=== PATIENT | male | born 1990 | race Caucasian/White ===

== ENCOUNTER 2019-04-16 17:12 | Inpatient (IN) | payer MEDICAID ==
[~2019-04-16] VITALS: Ht 175.3 cm; Wt 81.6 kg
--- NOTE | 2019-04-16 17:12 | NUR ---
NO OBVIOUS SIGNS OF TRUAMA OR DEFORMITY. NO BLEEDING.
--- NOTE | 2019-04-16 17:12 | NUR ---
Patient transferred to bed 10 via wheelchair by tech. RN evaluating patient at bedside.
[2019-04-16 17:16] VITALS: BP 137/69
[2019-04-16] MEDS ORDERED: NACL 0.9% 1,000 ML IV ONE ×2 (17:20→20:40)
--- NOTE | 2019-04-16 17:20 | NUR ---
# 14 FR Urinary catheter inserted utilizing sterile technique. Immediate return of 50 ml YELLOW urine noted. Urine sample collected and sent to lab. PT TOLERATED WELL
--- NOTE | 2019-04-16 17:32 | NUR ---
XRAY AT BEDSIDE
--- NOTE | 2019-04-16 17:38 | NUR ---
Patient taken to CT scan via gurney by stanley, accompanied by RN.
[2019-04-16 17:52] LABS: BASOPHILS # (AUTO) 0.1 K/uL (0.00-0.22); BASOPHILS % (AUTO) 1.4 % (0.0-2.0); EOSINOPHILS # (AUTO) 0.1 K/uL (0-0.4); HEMATOCRIT 46.3 % (36-52); HEMOGLOBIN 14.9 g/dL (12.0-18.0); LYMPHOCYTES # (AUTO) 3.2 K/uL (2.0-11.5); LYMPHOCYTES % (AUTO) 30.5 % (20.5-51.1); MEAN CORPUSCULAR HEMOGLOBIN 29 pg (27-31); MEAN CORPUSCULAR HGB CONC 32 g/dL (33-37); MEAN CORPUSCULAR VOLUME 90.1 fL (80-94); MONOCYTES # (AUTO) 0.6 K/uL (0.8-1.0); MONOCYTES % (AUTO) 6.1 % (1.7-9.3); NEUTROPHILS # (AUTO) 6.5 K/uL (1.8-7.7); PLATELET COUNT (AUTO) 365 K/uL (140-450); RED BLOOD CELL COUNT(AUTO) 5.14 MIL/uL (4.20-6.10); RED CELL DISTRIBUTION WIDTH 14.1 % (11.6-13.7); WHITE BLOOD COUNT (AUTO) 10.6 K/uL (4.8-10.8)
[2019-04-16 17:56] LABS: APPEARANCE,URINE CLOUDY (CLEAR); BILIRUBIN,URINE NEGATIVE (NEGATIVE); BLOOD, URINE 3+ (NEGATIVE); COLOR,URINE ORANGE (YELLOW); LEUKOCYTE ESTERASE ,URINE NEGATIVE (NEGATIVE); NITRITE, URINE NEGATIVE (NEGATIVE); UGLUCOSE NEGATIVE (NEGATIVE)
--- NOTE | 2019-04-16 17:56 | NUR ---
PT RETURNED FROM CT. PT APHASIC. VITALS TAKEN
[2019-04-16 17:59] LABS: BARBITURATE, URINE NEG. ng/ml (NEG <=200); BENZODIAZEPINE, URINE NEG. ng/mL (NEG <=200); CANNABINOID, URINE NEG. ng/mL (NEG <=50); COCAINE, URINE NEG. ng/mL (NEG <=300); OPIATE, URINE NEG. ng/mL (NEG <=2000); PHENCYCLIDINE SCREEN,URINE NEG. ng/mL (NEG <=25)
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
[2019-04-16 18:05] LABS: ANION GAP 34.2 (8-16); CARBON DIOXIDE 10.5 mmol/L (21-32); CHLORIDE 100 mmol/L (98-107); CREATININE 1.5 mg/dL (0.7-1.3); GFR ARICAN-AMERICAN 72 mL/min (>90); GLUCOSE 152 mg/dL (74-106); POTASSIUM 3.7 mmol/L (3.5-5.1); SODIUM SERUM 141 mmol/L (136-145); UREA NITROGEN, BLOOD 13 mg/dL (7-18)
[2019-04-16 18:11] LABS: ALBUMIN 4.7 g/dL (3.4-5.0); ASPARTATE AMINOTRANSFERASE 17 U/L (15-37); TOTAL BILIRUBIN 1.4 mg/dL (0.0-1.0)
[2019-04-16 18:13] LABS: ACETAMINOPHEN < 0.5 ug/ml (10-30); SALICYLATE < 2.8 mg/dL (2.8-20.0)
--- NOTE | 2019-04-16 18:20 | NUR ---
PT STATES HIS NAME, RESPONSIVE TO VOICE, PUPILS 3 MM. MOVES AND LIFTS EXTREMETIES PT IS MORE COOPERATIVE WITH BROTHER BEDSIDE
--- NOTE | 2019-04-16 18:24 | NUR ---
[facility] NUMBER [phone]
[2019-04-16 18:36] LABS: RBC,URINE TOO NUMEROUS TO COUN /HPF (0-5); WBC,URINE NONE SEEN /HPF (0-5)
--- NOTE | 2019-04-16 18:53 | NUR ---
VITALS TAKEN, PT REFUSING TO ANSWER QUESTIONS OR FOLLOW COMMANDS. PT CALM BUT NOT COOPERATIVE
--- NOTE | 2019-04-16 19:17 | NUR ---
REPORT GIVEN TO ALIVIA REVELES
--- NOTE | 2019-04-16 19:18 | NUR ---
BEDSIDE REPORT RECEIVED FROM ANUSHKA MCCALL. TRANSFER OF CARE AT THIS TIME. PT STATING "I HAVE TO GO TO THE BATHROOM". URINAL PROVIDED.
--- NOTE | 2019-04-16 20:28 | NUR ---
ASKED PT HOW HE IS FEELING. PT RESPONDS "NOT NORMAL". VSS. WILL CONTINUE TO MONITOR.
[2019-04-16] MEDS ORDERED: ONDANSETRON 4 MG/2 ML VIAL IM/IVP PRN (22:00)
[2019-04-16] MEDS ORDERED: DOCUSATE SODIUM 100 MG GELCAP PO PRN (22:00)
[2019-04-16] MEDS ORDERED: HYDROcodone/APAP 5/325 MG 1 TAB TAB PO PRN (22:00)
[2019-04-16] MEDS ORDERED: ACETAMINOPHEN 325 MG TAB PO PRN (22:00)
--- NOTE | 2019-04-16 22:30 | NUR ---
Patient will be admitted to care of Dr. Johnson. Admited to [facility]. Will go to room 107A. Belongings list completed. Report to ANUSHKA Garcia.
[2019-04-16 22:57] LABS: AMYLASE 36 U/L (25-115); CHOL/HDL RATIO 4.5 (1-4.5); HDL CHOLESTEROL 41 mg/dL (40-60); LDL (CALC) 130 mg/dL (60-100); LIPASE 95 U/L (73-393); MAGNESIUM 2.3 mg/dL (1.8-2.4); PHOSPHORUS 2.9 mg/dL (2.5-4.9); THYROID STIMULATING HORMONE 0.78 uIU/mL (0.34-3.74); TRIGLYCERIDES 70 mg/dL (30-150)
[2019-04-16 23:03] LABS: PROTHROMBIN TIME 10.5 secs (10.8-13.4)
[2019-04-16 23:15] VITALS: BP 130/90
--- NOTE | 2019-04-16 23:15 | NUR ---
RECIEVED PT. AAOX1 , FROM ER / [facility] , WITH C/O ALOC - METH (+) , BROUGHT BY HIS BROTHER TO ER , WALKABLE TO TO BED WITH ASSITANCE - UNSTEADY GAIT - CONFUSED , IV SITE INTACT AND PATENT , ADMISSION ASSESSMENT DONE , MRSA COLLECTED AND SENT TO LAB . PLAN OF CARE DISCUSSED BUT POOR UNDERSTANDING DUE TO MENTAL STATUS . PUT ON FALL / SAFETY PRECAUTION PROTOCOL- BED ALARM ON , CALL LIGHT WITHIN REACH , WILL CONT. TO MONITOR..
[2019-04-16] MEDS ORDERED: ALBUTEROL SULFATE/IPRATROPIU 3 ML SOL IH PRN (23:55)
[2019-04-17] MEDS ORDERED: cefTRIAXone 1,000 MG VIAL ONE (00:03)
[2019-04-17] MEDS: NACL 0.9% 1,000 ML IV SCH ×4 (00:11→15:15)
--- NOTE | 2019-04-17 00:11 | NUR ---
RELATIVE ARRIVED SOME QUESTION - ANSWERED BY RELATIVES ABOUT ADMISSION ASSESSMENT.
--- NOTE | 2019-04-17 02:00 | NUR ---
VOIDED FREELY - NO DISTRESS NOTED AT THIS TIME - PT OCASSIONALLY LOOKING AT THE CEILING - STARRING ON THE BLANK
[2019-04-17 04:00] VITALS: BP 111/72
[2019-04-17] MEDS ORDERED: PIPERACILLIN/TAZOBACTAM 3.375 GM VIAL IV ONE (06:04)
[2019-04-17] MEDS: PIPERACILLIN/TAZOBACTAM 3.375 GM in DEXTROSE 5% 50 ML IV SCH ×2 (06:23→15:14)
[2019-04-17 06:44] LABS: BASOPHILS % (AUTO) 0.4 % (0.0-2.0); EOSINOPHILS # (AUTO) 0.1 K/uL (0-0.4); EOSINOPHILS % (AUTO) 1.1 % (0.0-4.0); HEMATOCRIT 39.6 % (36-52); HEMOGLOBIN 13.1 g/dL (12.0-18.0); LYMPHOCYTES # (AUTO) 1.5 K/uL (2.0-11.5); LYMPHOCYTES % (AUTO) 22.9 % (20.5-51.1); MEAN CORPUSCULAR HEMOGLOBIN 29 pg (27-31); MEAN CORPUSCULAR HGB CONC 33 g/dL (33-37); MEAN CORPUSCULAR VOLUME 86.7 fL (80-94); MONOCYTES # (AUTO) 0.4 K/uL (0.8-1.0); MONOCYTES % (AUTO) 6.7 % (1.7-9.3); NEUTROPHILS # (AUTO) 4.5 K/uL (1.8-7.7); NEUTROPHILS % (AUTO) 68.9 % (42.2-75.2); PLATELET COUNT (AUTO) 299 K/uL (140-450); RED BLOOD CELL COUNT(AUTO) 4.56 MIL/uL (4.20-6.10); RED CELL DISTRIBUTION WIDTH 13.9 % (11.6-13.7); WHITE BLOOD COUNT (AUTO) 6.5 K/uL (4.8-10.8)
--- NOTE | 2019-04-17 07:15 | NUR ---
ENDORSED TO AM SHIFT - STILL CONFUSED BUT V/S WNL.
--- NOTE | 2019-04-17 07:15 | NUR ---
Received bedside report from pm nurse Radha. Pt asleep in bed, respirations even & nonlabored, FLACC 0. Right AC IV intact with ongoing NS @ 160ml/hr. Bed alarm on. Call light within reach.
[2019-04-17 07:19] LABS: CHOL/HDL RATIO 4.9 (1-4.5); MAGNESIUM 2.1 mg/dL (1.8-2.4); PHOSPHORUS 3.6 mg/dL (2.5-4.9)
[2019-04-17 07:29] LABS: ANION GAP 13.8 (8-16); CREATININE 0.7 mg/dL (0.7-1.3); POTASSIUM 3.8 mmol/L (3.5-5.1)
[2019-04-17 08:00] VITALS: BP 129/77
[2019-04-17] MEDS: LACTOBACILLUS RHAMNOSUS GG 1 EACH CAP PO SCH (09:00)
--- NOTE | 2019-04-17 09:00 | NUR ---
Po med lactobacillus held d/t ALOC. Pt opens eyes to auditory stimuli but not following commands. No signs of distress. PERRLA. Right AC IV intact with ongoing NS@ 100ml/hr. Bed alarm on. Call light within reach.
--- NOTE | 2019-04-17 09:50 | NUR ---
Attempted to obtain medical hx & consent for IV contrast dye from pt, but pt only opens eyes widely when name is called, stares at ceiling or wall, nonverbal, does not follow commands. Spoke to brother Mateo on the phone & gave medical hx & verbal consent for IV contrast for CT chest.
--- NOTE | 2019-04-17 10:50 | NUR ---
Pt aaox4, verbally responsive, requesting for food & drink. Pt answers appropriately to questions, able to follow simple commands. Dr. Pike notified & states will order diet. Right AC IV intact with ongoing NS @ 100ml/hr. Bed alarm on. Call light within reach.
--- NOTE | 2019-04-17 12:15 | NUR ---
Lunch tray served. Pt wide awake, able to follow commands. Assisted pt to high fowlers, setup tray in front of pt. Call light placed within reach.
--- NOTE | 2019-04-17 13:00 | NUR ---
Noticed pt slumped over his table. Pt woke up when name is called. States he is sleepy at the moment & will eat lunch later. Pt assisted to semifowlers in bed, overbed table moved to the side. Room kept dim & quiet for comfort. Right AC IV intact with ongoing NS @ 100ml/hr. Call light within reach.
--- NOTE | 2019-04-17 15:55 | NUR ---
RECEIVED REPORT FROM NICHOLAS. PT SLEEPING, AROUSABLE TO TOUCH. IV IN PLACE R AC INFUSING PER ORDER. SKIN INTACT. RESPIRATIONS EVEN AND UNLABORED ON ROOM AIR. SAFETY MEASURES IN PLACE, BED IN LOW POSITION. CALL LIGHT WITHIN REACH. WILL CONTINUE TO MONITOR
[2019-04-17 16:00] VITALS: BP 112/75
--- NOTE | 2019-04-17 18:06 | NUR ---
PT IN BED SLEEPING. NO DISTRESS NOTED. FLACC 0. SAFETY MEASURES IN PLACE. BED IN LOW POSITION. CALL LIGHT WITHIN REACH. WILL CONTINUE TO MONITOR.
--- NOTE | 2019-04-17 19:10 | NUR ---
GAVE REPORT TO NIGHT NURSE FOR CONTINUITY OF CARE. PT IN STABLE CONDITION
--- NOTE | 2019-04-17 19:20 | NUR ---
RECEIVED FROM AM RN IN BED SLEEPING. WOKE UP EASILY WHEN TOUCHED BY ME. ABLE TO NOD HEAD WHEN I ASKED HIM IF HE WAS OK AND THAT I AM TAKING OVER CARE FOR THE NIGHT . RE-ORIENTED TO CALL LIGHT USE. NO COMPLAINTS DONE. IVF SITE INTACT AND NO INFILTRATION NOTED. DX. OF CHANGE OF LOC.
[2019-04-17 23:06] VITALS: BP 114/69
--- NOTE | 2019-04-17 23:07 | NUR ---
PT. AWAKE AND EATING DINNER. VERBALIZES WELL IN MOZAMBICAN AND INDONESIAN. A/O X 4. ROM X 4. DENIES ANY PAIN AT THIS TIME. AWARE WHERE HE IS RIGHT NOW . RE-ORIENTED TO SURROUNDINGS AND ENGRAVING PRESS OPERATOR. ENCOURAGED TO USE CALL LIGHT FOR HELP IF IN PAIN AND IF HE NEEDS HELP. URINATED IN URINAL AT THIS TIME. AFEBRILE AND VITAL SIGNS WITH IN NORMAL LIMITS.
--- NOTE | 2019-04-18 00:35 | NUR ---
SLEEPING. WOKE UP WHEN TOUCHED AND CALLED BY NAME. ASKED IF HE WANTS FLU VACCINE AND PNA VACCINE. EXPLAINED PROS AND CONS WITH HIM. "OK" WILL INFORM .
[2019-04-18] MEDS: NACL 0.9% 1,000 ML IV SCH ×2 (02:44→17:24)
--- NOTE | 2019-04-18 03:04 | NUR ---
SLEEPING. NO RESTLESSNESS. NO SOB. CALL LIGHT WITH IN REACH.
--- NOTE | 2019-04-18 06:41 | NUR ---
PT. PERSONAL HYGIENE RENDERED BY PROJECT FINANCIAL ANALYST. WOKE UP EASILY WHEN TOUCHED AND CALLED BY NAME. ABLE TO ANSWER SIMPLE QUESTION. WILL ENDORSE TO AM RN FOR CONTINUITY OF CARE.
--- NOTE | 2019-04-18 07:15 | NUR ---
PT RECEIVED FROM NIGHT NURSE. PT SLEEPING AROUSABLE TO NAME. AAO X2. RESPIRATIONS EVEN AND UNLABORED ON ROOM AIR. SKIN INTACT. IV PATENT AND INTACT R AC 20G INFUSING PER ORDER. PT EXPRESSES FEELING SLEEPY. BED IN LOW POSITION. SAFETY MEASURES IN PLACE. CALL LIGHT WITHIN REACH. WILL CONTINUE TO MONITOR.
[2019-04-18 07:33] LABS: ANION GAP 9.3 (8-16); CARBON DIOXIDE 25.8 mmol/L (21-32); CREATININE 0.7 mg/dL (0.7-1.3); POTASSIUM 4.1 mmol/L (3.5-5.1)
[2019-04-18 07:38] LABS: BASOPHILS % (AUTO) 0.4 % (0.0-2.0); EOSINOPHILS # (AUTO) 0.1 K/uL (0-0.4); EOSINOPHILS % (AUTO) 1.9 % (0.0-4.0); HEMATOCRIT 38.4 % (36-52); HEMOGLOBIN 12.8 g/dL (12.0-18.0); LYMPHOCYTES # (AUTO) 1.5 K/uL (2.0-11.5); LYMPHOCYTES % (AUTO) 28.7 % (20.5-51.1); MEAN CORPUSCULAR HEMOGLOBIN 29 pg (27-31); MEAN CORPUSCULAR HGB CONC 33 g/dL (33-37); MEAN CORPUSCULAR VOLUME 86.9 fL (80-94); MONOCYTES # (AUTO) 0.4 K/uL (0.8-1.0); MONOCYTES % (AUTO) 7.5 % (1.7-9.3); NEUTROPHILS # (AUTO) 3.1 K/uL (1.8-7.7); NEUTROPHILS % (AUTO) 61.5 % (42.2-75.2); PLATELET COUNT (AUTO) 297 K/uL (140-450); RED BLOOD CELL COUNT(AUTO) 4.42 MIL/uL (4.20-6.10); RED CELL DISTRIBUTION WIDTH 13.9 % (11.6-13.7); WHITE BLOOD COUNT (AUTO) 5.1 K/uL (4.8-10.8)
[2019-04-18 08:00] VITALS: BP 115/77
[2019-04-18] MEDS ORDERED: AZITHROMYCIN 250 MG in DEXTROSE 5% 250 ML IV SCH (08:00)
[2019-04-18 08:06] LABS: T4 (THYROXINE) 8.8 ug/dL (4.5-12.0)
--- NOTE | 2019-04-18 09:33 | NUR ---
MEDICATIONS ADMINISTERED PER ORDER. PT TOLERATED WELL. PT ASLEEP, AROUSABLE TO SPEECH. WILL CONTINUE TO MONITOR.
[2019-04-18] MEDS: LACTOBACILLUS RHAMNOSUS GG 1 EACH CAP PO SCH (09:36)
[2019-04-18] MEDS: PIPERACILLIN/TAZOBACTAM 3.375 GM in DEXTROSE 5% 50 ML IV SCH ×2 (09:38→17:23)
--- NOTE | 2019-04-18 10:39 | NUR ---
STARTED AZITHROMYCIN INFUSION PER ORDER. WILL CONTINUE TO MONITOR.
--- NOTE | 2019-04-18 13:12 | NUR ---
PATIENT HAS BEEN SCREENED AND CATEGORIZED LOW NUTRITION RISK. PATIENT WILL BE SEEN WITHIN 7 DAYS OF ADMISSION. 04/23/19 ALEX WATTS MBA, RD
[2019-04-18 16:00] VITALS: BP 110/76
--- NOTE | 2019-04-18 16:34 | NUR ---
MEDICATIONS ADMINISTERED PER ORDER. PT TOLERATED WELL. WILL CONTINUE TO MONITOR.
--- NOTE | 2019-04-18 17:39 | NUR ---
PT BROTHER ON UNIT ASKING ABOUT PT CONDITION. UPDATE OFFERED. PT AAO X3. NO DISTRESS NOTED. WILL CONTINUE TO MONITOR.
--- NOTE | 2019-04-18 19:10 | NUR ---
RECIEVED PT. AAOX 2 TO 3 , NID , IV SITE INTACT AND PATENT , WITH HX. OF METH ABUSE - REMINDS HIM THE USE OF CALL LIGHT , NO COMPLAIN MADE AT THIS TIME , ON SAFETY / FALL PRECAUTION PROTOCOL - CALL LIGHT WITHIN REACH , PLAN OF CARE DISCUSSED BUT POOR UNDERSTANDING DUE TO MENTAL STATUS . WILL CONT. TO MONITOR.
--- NOTE | 2019-04-18 19:10 | NUR ---
PT HANDED OFF TO NIGHT NURSE IN STABLE CONDITION FOR CONTINUITY OF CARE.
--- NOTE | 2019-04-18 22:00 | NUR ---
MADE ROUNDS , SLEEPING
[2019-04-19] VITALS: BP 114/60
--- NOTE | 2019-04-19 | NUR ---
MADE ROUNDS , NO SIGNS OF DISTRESS NOTED AT THIS TIME , WILL CONT. TO MONITOR. CALL LIGHT WITHIN REACH
[2019-04-19] MEDS: PIPERACILLIN/TAZOBACTAM 3.375 GM in DEXTROSE 5% 50 ML IV SCH (00:52)
--- NOTE | 2019-04-19 04:00 | NUR ---
MADE ROUNDS , NO SIGNS OF DISTRESS NOTED AT THIS TIME , WILL CONT. TO MONITOR. CALL LIGHT WITHIN REACH.
--- NOTE | 2019-04-19 06:00 | NUR ---
MADE ROUNDS , NO DISTRESS NOTED AT THIS TIME.
--- NOTE | 2019-04-19 07:08 | NUR ---
RECEIVED REPORT FROM TRIALS MANAGER NURSE. PT AAOX4, NO C/O PAIN AT THIS TIME. VSS. IV ON RT AC 18 GA RUNNING IVF PER ORDER. RESPIRATIONS EVEN AND UNLABORED ON RA. ACTIVE BS, SOFT ABD. SKIN IS INTACT, WARM TO TOUCH. PT ON FALL RISK PRECAUTIONS, SAFETY MEASURES IN PLACE, CALL LIGHT WITHIN REACH. REVIEWED POC WITH PT, PT VERBALIZED UNDERSTANDING.
[2019-04-19 07:09] LABS: BASOPHILS % (AUTO) 0.3 % (0.0-2.0); EOSINOPHILS # (AUTO) 0.1 K/uL (0-0.4); EOSINOPHILS % (AUTO) 1.5 % (0.0-4.0); HEMOGLOBIN 12.9 g/dL (12.0-18.0); LYMPHOCYTES # (AUTO) 1.3 K/uL (2.0-11.5); LYMPHOCYTES % (AUTO) 23.8 % (20.5-51.1); MEAN CORPUSCULAR HEMOGLOBIN 29 pg (27-31); MEAN CORPUSCULAR HGB CONC 33 g/dL (33-37); MEAN CORPUSCULAR VOLUME 87.1 fL (80-94); MONOCYTES # (AUTO) 0.3 K/uL (0.8-1.0); MONOCYTES % (AUTO) 5.5 % (1.7-9.3); NEUTROPHILS # (AUTO) 3.8 K/uL (1.8-7.7); NEUTROPHILS % (AUTO) 68.9 % (42.2-75.2); PLATELET COUNT (AUTO) 290 K/uL (140-450); RED BLOOD CELL COUNT(AUTO) 4.47 MIL/uL (4.20-6.10); RED CELL DISTRIBUTION WIDTH 14.3 % (11.6-13.7); WHITE BLOOD COUNT (AUTO) 5.6 K/uL (4.8-10.8)
--- NOTE | 2019-04-19 07:20 | NUR ---
ENDORSED TO AM SHIFT WITH STABLE CONDITION
[2019-04-19 07:36] LABS: ANION GAP 13.1 (8-16); CARBON DIOXIDE 24.3 mmol/L (21-32); CREATININE 0.7 mg/dL (0.7-1.3); POTASSIUM 4.4 mmol/L (3.5-5.1)
[2019-04-19 08:00] VITALS: BP 120/76
--- NOTE | 2019-04-19 08:32 | NUR ---
PT IS SCREAMING, STATES "MY STOMACH HURTS SO BAD". PER PT PAIN DEVELOPED AFTER EATING BREAKFAST. DR. HUBBARD AT BEDSIDE DOING ASSESSMENT. AWAITING ORDERS.
[2019-04-19 08:49] VITALS: BP 115/77
--- NOTE | 2019-04-19 08:49 | NUR ---
PT VOMITED X1. PT STATES LEVEL 9/10 PAIN BUT THE PAIN HAS REDUCED SINCE HE VOMITED. ADMINISTERED ZOFRAN AND MORPHINE PER ORDER. PT IS AWARE OF INDICATIONS. WILL REASSESS WITHIN 1 HOUR.
[2019-04-19] MEDS: NACL 0.9% 1,000 ML IV SCH (08:51)
[2019-04-19] MEDS ORDERED: MORPHINE SULFATE 4 MG/ML SYR IVP SCH (09:00)
--- NOTE | 2019-04-19 09:49 | NUR ---
PT STATES HE NO LONGER HAS FEELINGS OF NAUSEA AND NO C/O PAIN. PT IS RESTING COMFORTABLY IN BED IN SUPINE POSITION.
[2019-04-19] MEDS: LACTOBACILLUS RHAMNOSUS GG 1 EACH CAP PO SCH (10:00)
[2019-04-19] MEDS: risperiDONE 1 MG TAB PO SCH ×2 (10:00→20:43)
--- NOTE | 2019-04-19 10:00 | NUR ---
ADMINISTERED RISPERDAL AND LACTOBACILLUS PER ORDER. PT HAS NO SIGNS OF DISTRESS AT THIS TIME.
--- NOTE | 2019-04-19 13:00 | NUR ---
PT TAKEN FOR CT ABDOMEN PROCEDURE. PT HAS NO SIGNS OF DISTRESS AT THIS TIME.
--- NOTE | 2019-04-19 14:06 | NUR ---
Box Office Manager Note: I met with patient at bedside to conduct assessment. However, patient remained mute, unable to conduct assessment. Patient has Mateo Clayton listed as "person to notify" on his face sheet. I dialed that number, does not ring, goes straight to voicemail, person says their name very quickly, unable to understand name, left message.
--- NOTE | 2019-04-19 14:30 | NUR ---
PT IN SUPINE POSITION, RESTING COMFORTABLY. RESPIRATIONS EVEN AND UNLABORED ON RA.
[2019-04-19 16:00] VITALS: BP 107/68
--- NOTE | 2019-04-19 16:00 | NUR ---
PT VSS, RESPIRATIONS EVEN AND UNLABORED. NO C/O PAIN AT THIS TIME.
--- NOTE | 2019-04-19 18:00 | NUR ---
PT SLEEPING IN SUPINE POSITION. RESPIRATIONS EVEN AND UNLABORED ON RA.
--- NOTE | 2019-04-19 19:30 | NUR ---
ENDORSED PT TO RECEPTIONIST TELEPHONE OPERATOR NURSE. PT HAS NO SIGNS OF DISTRESS AT THIS TIME.
--- NOTE | 2019-04-19 19:31 | NUR ---
REPORT RECEIVED FROM AM NURSE AT BEDSIDE. PT IN STABLE CONDITION. AAOX3. INTRODUCED SELF TO PT. BOARD UPDATED. PT HAS COMPLAINTS OF PAIN. WILL MEDICATE. NO SOB. AFEBRILE. PT SEEMS DROWSY. PT AMBULATES BUT USES URINAL. IV SITE R AC 18G RUNNING NS@70ML/HR PATENT AND INTACT. SKIN WARM, DRY, AND INTACT WITH NO OPEN WOUNDS. BED LOCKED IN LOW POSITION. CALL CARDOZO WITHIN REACH. SAFETY PRECAUTION IN PLACE. ALL NEEDS MET AT THIS TIME.
--- NOTE | 2019-04-19 20:00 | NUR ---
RECEIVED PATIENT ON ROOM AIR, PULSE OX SAT 97%. PATIENT DENIES SOB. PRN HHN NOT INDICATED AT THIS TIME. NO ACUTE RESPIRATORY DISTRESS NOTED AT THIS TIME. WILL CONTINUE TO MONITOR.
[2019-04-19] MEDS: MORPHINE SULFATE 2 MG/ML SYR IVP PRN (20:43)
--- NOTE | 2019-04-19 20:43 | NUR ---
RISPERDAL GIVEN PO. MORPHINE GIVEN FOR 01/20 PAIN. PT TOLERATED WELL.
--- NOTE | 2019-04-19 22:30 | NUR ---
PT SLEEPING COMFORTABLY BUT AROUSABLE. NO S/S OF DISTRESS NOTED. WILL CONTINUE TO MONITOR.
[2019-04-20] VITALS: BP 117/66
--- NOTE | 2019-04-20 00:15 | NUR ---
PT SLEEPING COMFORTABLY BUT AROUSABLE. NO S/S OF DISTRESS NOTED. NO COMPLAINTS OF PAIN. NO SOB. AFEBRILE. WILL CONTINUE TO MONITOR.
[2019-04-20] MEDS: NACL 0.9% 1,000 ML IV SCH ×2 (00:25→15:08)
--- NOTE | 2019-04-20 02:30 | NUR ---
PT SLEEPING COMFORTABLY BUT AROUSABLE. NO S/S OF DISTRESS NOTED. RESPIRATIONS EVEN, UNLABORED, AND WNL. WILL CONTINUE TO MONITOR.
--- NOTE | 2019-04-20 04:45 | NUR ---
PT SLEEPING COMFORTABLY BUT AROUSABLE. NO S/S OF DISTRESS NOTED. WILL CONTINUE TO MONITOR.
--- NOTE | 2019-04-20 06:45 | NUR ---
PT AWAKE AND ALERT. PT IN STABLE CONDITION.
--- NOTE | 2019-04-20 07:05 | NUR ---
RECEIVED REPORT FORM ART MUSEUM AIDE NURSE. PT AAOX4, NO C/O PAIN AT THIS TIME, VSS. IV ON RT AC 18 GA RUNNING IVF PER ORDER. ACTIVE BS, SOFT ABD. SKIN IS INTACT, WARM TO TOUCH. PT IS ON FALL RISK PRECAUTIONS, SAFETY MEASURES IN PLACE, CALL LIGHT WITHIN REACH. REVIEWED POC WITH PT, PT VERBALIZED UNDERSTANDING.
[2019-04-20 08:00] VITALS: BP 103/70
[2019-04-20] MEDS: risperiDONE 1 MG TAB PO SCH ×2 (08:37→20:15)
[2019-04-20] MEDS: LACTOBACILLUS RHAMNOSUS GG 1 EACH CAP PO SCH (08:37)
--- NOTE | 2019-04-20 08:37 | NUR ---
PT GIVEN RISPERDAL AND LACTOBACILLUS PER ORDER, PT AWARE OF INDICATIONS AND POTENTIAL SIDE EFFECTS. NO C/O PAIN AT THIS TIME.
--- NOTE | 2019-04-20 10:10 | NUR ---
PT IS RESTING COMFORTABLY IN BED. RESPIRATIONS EVEN AND UNLABORED ON RA.
--- NOTE | 2019-04-20 11:14 | NUR ---
Animal Care Giver Note: I met with patient at bedside to conduct assessment. Patient provided me with very limited information. During conversation patient remained silent for a long period of time. He stated his brother Aakash Clayton visited him two days ago at hospital and told him he was going to pick him up upon discharge. He does not know Aakash's phone number or home address. He stated Aakash lives in [place] near [facility]. I was not able to discuss discharge plan with patient due to patient remaining silent and not answering questions. Patient has Mateo Clayton listed as "person to notify" on his face sheet. I dialed that number again today, does not ring, goes straight to voicemail, person says their name very quickly, unable to understand name, left message.
--- NOTE | 2019-04-20 12:30 | NUR ---
PT SITTING UP IN BED HAVING LUNCH. PT HAS NO C/O PAIN. WILL CONTINUE TO MONITOR.
--- NOTE | 2019-04-20 14:30 | NUR ---
NOTED 500 ML OF CLEAR, YELLOW URINE IN URINAL. PT HAS NO SIGNS OF DISTRESS AT THIS TIME.
--- NOTE | 2019-04-20 14:46 | NUR ---
04/20/19 RD INITIAL ASSESSMENT COMPLETED PLEASE REFER TO NUTRITION ASSESSMENT UNDER CARE ACTIVITY FOR ESTIMATED NUTRITIONAL NEEDS. 1. CONTINUE REGULAR DIET TOLERATED 2. RD TO FOLLOW-UP 3-5 DAYS, MODERATE RISK RAFY [address]BR[address] RD
[2019-04-20 16:00] VITALS: BP 118/78
--- NOTE | 2019-04-20 16:20 | NUR ---
STARTED IV ON RT HAND 22 GA, FLUSHING WITH NO RESISTANCE, DRESSING CLEAN, DRY AND INTACT. VSS, NO C/O PAIN AT THIS TIME.
[2019-04-20] MEDS: MORPHINE SULFATE 2 MG/ML SYR IVP PRN (18:08)
--- NOTE | 2019-04-20 18:08 | NUR ---
ADMINISTERED MORPHINE FOR 7/10 PAIN, PT POINTING TO ABDOMEN. WILL REASSESS WITHIN 1 HOUR.
--- NOTE | 2019-04-20 19:10 | NUR ---
ENDORSED PT TO MALL PLANT CARETAKER NURSE. PT HAS NO SIGNS OF DISTRESS AT THIS TIME AND NO C/O PAIN.
--- NOTE | 2019-04-20 19:11 | NUR ---
REPORT RECEIVED FROM AM NURSE AT BEDSIDE. PT IN STABLE CONDITION. AAOX4. INTRODUCED SELF TO PT. BOARD UPDATED. NO COMPLAINTS OF PAIN. NO SOB. AFEBRILE. PT IS AMBULATORY. IV SITE R HAND 22G RUNNING NS@70ML/HR PATENT AND INTACT. SKIN WARM, DRY, AND INTACT WITH NO OPEN WOUNDS. BED LOCKED IN LOW POSITION. CALL CARDOZO WITHIN REACH. SAFETY PRECAUTION IN PLACE. ALL NEEDS MET AT THIS TIME.
--- NOTE | 2019-04-20 20:15 | NUR ---
RISPERDAL GIVEN PO. PT TOLERATED WELL.
--- NOTE | 2019-04-20 20:20 | NUR ---
MD NOTIFIED OF PATIENT WANTING TO SHOWER. SHOWER PRIVILEGES GIVEN.
--- NOTE | 2019-04-20 21:04 | NUR ---
RECEIVED PATIENT ON ROOM AIR, PULSE OX SAT 97%. PT DENIES SOB. PRN HHN NOT INDICATED AT THIS TIME. NO ACUTE RESPIRATORY DISTRESS NOTED. WILL CONTINUE TO MONITOR.
--- NOTE | 2019-04-20 21:30 | NUR ---
PT IN BED WATCHING TV. NO S/S OF DISTRESS NOTED. WILL CONTINUE TO MONITOR.
--- NOTE | 2019-04-20 23:20 | NUR ---
PT SLEEPING COMFORTABLY BUT AROUSABLE. NO S/S OF DISTRESS NOTED. WILL CONTINUE TO MONITOR.
[2019-04-21] VITALS: BP 127/73
--- NOTE | 2019-04-21 01:45 | NUR ---
PT SLEEPING COMFORTABLY BUT AROUSABLE. NO S/S OF DISTRESS NOTED. RESPIRATIONS EVEN, UNLABORED, AND WNL. WILL CONTINUE TO MONITOR.
--- NOTE | 2019-04-21 02:55 | NUR ---
PT SLEEPING COMFORTABLY BUT AROUSABLE. NO S/S OF DISTRESS NOTED. WILL CONTINUE TO MONITOR.
--- NOTE | 2019-04-21 07:24 | NUR ---
RECEIVED REPORT FORM OPTIMIZATION ENGINEER NURSE. PT AAOX4, NO C/O PAIN AT THIS TIME. IV ON RT AC 18 GA RUNNING IVF PER ORDER. ACTIVE BS, SOFT ABD. SKIN IS INTACT, WARM TO TOUCH. PT IS ON FALL RISK PRECAUTIONS, SAFETY MEASURES IN PLACE, CALL LIGHT WITHIN REACH. REVIEWED POC WITH PT, PT VERBALIZED UNDERSTANDING. WILL ROUND FREQUENTLY ON PT.
[2019-04-21 08:00] VITALS: BP 109/70
[2019-04-21] MEDS: NACL 0.9% 1,000 ML IV SCH ×2 (08:18→22:36)
[2019-04-21] MEDS: LACTOBACILLUS RHAMNOSUS GG 1 EACH CAP PO SCH (08:53)
[2019-04-21] MEDS: risperiDONE 1 MG TAB PO SCH ×2 (08:53→17:52)
--- NOTE | 2019-04-21 09:32 | NUR ---
ADMINISTERED MORNING MEDS TO PT. PT TOLERATED THEM WELL. PT DENIES PAIN OR SOB. WILL CONTINUE TO ROUND FREQUENTLY ON PT. BED IN LOW POSITION, CALL LIGHT WITHIN REACH.
--- NOTE | 2019-04-21 11:50 | NUR ---
PT RESTING IN BED AWAITING LUNCH. ALL NEEDS MET. WILL CONTINUE TO ROUND FREQUENTLY ON PT. BED IN LOW POSITION, CALL LIGHT WITHIN REACH.
--- NOTE | 2019-04-21 13:51 | NUR ---
PT RESTING IN BED. ALL NEEDS MET.WILL CONTINUE TO ROUND FREQUENTLY ON PT.
--- NOTE | 2019-04-21 15:48 | NUR ---
PT RESTING IN BED. ALL NEEDS MET. WILL CONTINUE TO ROUND FREQUENTLY ON PT. BED IN LOW POSITION, CALL LIGHT WITHIN REACH.
[2019-04-21 16:00] VITALS: BP 129/81
[2019-04-21] MEDS ORDERED: BOWEL EVACUANT DRINK 4,000 ML PDS PO SCH (16:20)
[2019-04-21] MEDS ORDERED: MAGNESIUM CITRATE 300 ML BTL PO SCH (16:55)
--- NOTE | 2019-04-21 19:40 | NUR ---
ENDORSED PT TO MANUFACTURING ASSISTANT FOR CONTINUITY OF CARE. PT IN STABLE CONDITION AT THIS TIME.
--- NOTE | 2019-04-21 19:41 | NUR ---
RECD. SLEEPING IN BED BUT RESPONDS TO NURSE INTRODUCTION, JUST NODS HEAD AND WENT BACK TO SLEEP, SEEMS DROWSY. RESPIRATION EVEN AND UNLABORED. IV OF NS AT 70 ML/HR INFUSING LEFT HAND G22. SAFETY MEASURES ENFORCED. BED ON LOWEST POSITION, ON ALARM, CALL LIGHT IN REACH. NO APPEARANCE OF PAIN NOTED 0. VS STABLE. 02 SAT - 94% ON ROOM AIR.
--- NOTE | 2019-04-21 19:41 | NUR ---
Patient's Plan of Care was discussed and reviewed with ASIM: JOSÉ MIGUEL. WILL CONTINUE TO MONITOR
[2019-04-21 20:00] VITALS: BP 121/64
--- NOTE | 2019-04-21 21:00 | NUR ---
STILL SLEEPING COMFORTABLY.
--- NOTE | 2019-04-22 | NUR ---
AWAKE IN BED, A/OX4. STATED HE HAS NO BM FOR 5 DAYS NOW. INSTRUCTED TO FINISHED HALF OF THE [place] AT THE BEDSIDE TABLE. ENCOURAGED TO DRINK MORE WATER AND FLUIDS AND MORE FIBER IN THE DIET.
--- NOTE | 2019-04-22 00:35 | NUR ---
CHECKED PATIENT, CITROMA NOT YET COMPLETELY FINISHED. ADVISED TO DRINK ALL. COOPERATIVE. ADMITTED HE DOES NOT EAT FRUITS AND VEGETABLES. INFORMATION GIVEN ON THE ADVANTAGE OF EATING MORE FRUITS AND VEGETABLES IN THE DIET.
--- NOTE | 2019-04-22 01:30 | NUR ---
IN BED SLEEPING, NO DISTRESS NOTED.
--- NOTE | 2019-04-22 03:00 | NUR ---
SLEEPING COMFORTABLY IN BED.
--- NOTE | 2019-04-22 05:30 | NUR ---
ABLE TO SLEEP WELL. STATED HE HAD A LARGE BM.
--- NOTE | 2019-04-22 06:52 | NUR ---
CONDITION REMAIN STABLE. WILL ENDORSE TO AM NURSE FOR CONTINUITY OF CARE.
[2019-04-22] MEDS: NACL 0.9% 1,000 ML IV SCH (06:55)
--- NOTE | 2019-04-22 07:37 | NUR ---
RECEIVED BEDSIDE REPORT FROM PM RN PT APPEARS STABLE AND IN NO APPARENT DISTRESS. ALL SAFETY MEASURES ARE IN PLACE WILL CONTINUE TO MONITOR
[2019-04-22 08:34] VITALS: BP 104/61
[2019-04-22] MEDS: risperiDONE 1 MG TAB PO SCH ×2 (09:18→21:47)
[2019-04-22] MEDS: LACTOBACILLUS RHAMNOSUS GG 1 EACH CAP PO SCH (09:18)
--- NOTE | 2019-04-22 09:36 | NUR ---
FREQUENT ROUNDING ON PT PT APPEARS STABLE AND IN NO APPARENT DISTRESS. ALL SAFETY MEASURES ARE IN PLACE PT APPEARS STABLE AND IN NO APPARENT DISTRESS. ALL SAFETY MEASURES ARE IN PLACE WILL CONTINUE TO MONITOR.
--- NOTE | 2019-04-22 11:39 | NUR ---
FREQUENT ROUNDING ON PT PT APPEARS STABLE AND IN NO APPARENT DISTRESS. ALL SAFETY MEASURES ARE IN PLACE WILL CONTINUE TO MONITOR.
--- NOTE | 2019-04-22 13:46 | NUR ---
FREQUENT ROUNDING ON PT PT APPEARS STABLE AND IN NO APPARENT DISTRESS. ALLS SAFETY MEASURES ARE IN PLACE WILL CONTINUE TO MONITOR
--- NOTE | 2019-04-22 15:53 | NUR ---
FREQUENT ROUNDING ON PT PT APPEARS STABLE AND IN NO APPARENT DISTRESS. ALL SAFETY MEASURES ARE IN PLACE
--- NOTE | 2019-04-22 16:30 | NUR ---
Asphalt Tar And Gravel Roofer Note: I met with patient at bedside. He still states he cannot recall his brother Mateo's phone number. He reported Mateo will be visiting him today. He told me he knows a patient who is currently admitted here (Mariah Gorman) and he is planning to go to her home upon discharge. He stated he has seen Mariah in hospital. I spoke with Mariah, she stated Mateo is her [facility] caregiver. She stated patient (Hipolito) and his brother Mateo have been living in a vacant apartment below her apartment. She has been allowing them to use her bathroom. I called and spoke with Mateo , he speaks Lao. He requested assistance with finding patient a home. He reported patient does not have an income and he cannot assist patient with paying for placement. I told him that in order for us to assist patient with room and board placement they must have an income. He verbalized understanding. Per Mateo, he will review list of homeless shelters and assist patient with arrangement. He reported he is coming soon to hospital to machine pecan picker patient. I provided patient with a list of homeless shelters, room and boards, and food [place]. Patient declined additional community resources.
[2019-04-22 16:46] VITALS: BP 116/71
--- NOTE | 2019-04-22 17:38 | NUR ---
FREQUENT ROUNDING ON PT PT APPEARS STABLE AND IN NO APPARENT DISTRESS.
--- NOTE | 2019-04-22 19:28 | NUR ---
ENDORSED PT TO PM RN PT APPEARS STABLE AND IN NO APPARENT DISTRESS. ALL SAFETY MEASURES ARE IN PLACE
--- NOTE | 2019-04-22 19:29 | NUR ---
RECEIVED BEDSIDE REPORT FROM AM NURSE. PT Erika James AO X 4, AMBULATORY. [employer]. PT IS AMBULATORY WITH STANDBY ASSIST,STILL ON FALL RISK PRECAUTION APPEARS STABLE AND IN NO APPARENT DISTRESS. WITH LEFT AC G 20 NS INFUSING WELL , PATENT AND INTACT. ALL SAFETY MEASURES ARE IN PLACE WILL CONTINUE TO MONITOR Addendum: 04/23/19 at 0401 by Radha Leo RN AMEND TO Jen Luque
[2019-04-22] MEDS: MORPHINE SULFATE 2 MG/ML SYR IVP PRN (21:42)
--- NOTE | 2019-04-22 22:56 | NUR ---
PT ASLEEP, ABLE TO BE AROUSED BY VERBAL STIMULI, NO COMPLAINTS AT THIS THIS TIME. NO SIGNS OF RESPIRATORY DISTRESS
--- NOTE | 2019-04-22 23:50 | NUR ---
PT ABLE TO AMBUULATE TO GO TO THE BATHROOM, STEADY GAIT, KEPT WATCH. VOIDED
[2019-04-23] VITALS: BP 116/58
[2019-04-23] MEDS: NACL 0.9% 1,000 ML IV SCH ×2 (00:20→17:39)
[2019-04-23] MEDS ORDERED: INFLUENZA VACCINE QUAD 0.5 ML SYR IMVAC PRN (01:55)
--- NOTE | 2019-04-23 05:15 | NUR ---
PT AWAKE, WENT TO THE BATHROOM, STEADY GAIT. KEPT WATCH
--- NOTE | 2019-04-23 06:00 | NUR ---
PT C/O OF IV NOT WORKING, FIXED IV STILL PATENT AND INTACT
--- NOTE | 2019-04-23 06:46 | NUR ---
PT STILL ASLEEP BUT AROUSABLE BY VERBAL STIMULI, AMBULATORY W/ STANDBY ASSIST. PT STABLE AT THIS TIME. WILL ENDORSE TO NEXT SHIFT.
--- NOTE | 2019-04-23 07:42 | NUR ---
RECEIVED HAND OFF REPORT FROM PM RN PT APPEARS STABLE AND IN NO APPARENT DISTRESS. ALL SAFETY MEASURES ARE IN PLACE.
[2019-04-23] MEDS: LACTOBACILLUS RHAMNOSUS GG 1 EACH CAP PO SCH (08:46)
[2019-04-23] MEDS: risperiDONE 1 MG TAB PO SCH (08:46)
[2019-04-23] MEDS ORDERED: HYDROcodone/APAP 5/325 MG 1 TAB TAB PO PRN (09:05)
--- NOTE | 2019-04-23 09:36 | NUR ---
FREQUENT ROUNDING ON PT PT APPEARS STABLE AND IN NO APPARENT DISTRESS. ALL SAFETY MEASURES ARE IN PLACE WILL CONTINUE TO MONITOR
--- NOTE | 2019-04-23 11:34 | NUR ---
FREQUENT ROUNDING ON PT PT APPEARS STABLE AND IN NO APPARENT DISTRESS. ALL SAFETY MEASURES ARE IN PLACE WILL CONTINUE TO MONITOR
--- NOTE | 2019-04-23 13:46 | NUR ---
PT AWAKE IN BED PT APPEARS STABLE AND IN NO APPARENT DISTRESS.
--- NOTE | 2019-04-23 15:36 | NUR ---
PT AMBULATING THE UNIT PT AMBULATING WITH A STEADY GAIT. PT APPEARS STABLE AND IN NO APPARENT DISTRESS.
[2019-04-23] MEDS ORDERED: RIS1 PO (17:36)
[2019-04-23 17:52] VITALS: BP 116/74
--- NOTE | 2019-04-23 18:32 | NUR ---
PT AMBULATED OFF THE FLOOR. REVIEWED DISCHARGE INSTRUCTIONS WITH PT PT SIGNED ALL DISCHARGE PAPERWORK ANSWERED ALL QUESTIONS. GAVE PATIENT TAXI TICKET, MONEY PROVIDED BY HOUSE SUPERVISIOR. AND PRESCRIPTION. PT STATED HE IS GOING TO LIVE WITH HIS BROTHER AT [address] [place] [address].
== END 2019-04-23 18:30 | disposition home or self-care (01) | DRG 720 ==
LOC: MED 17:12 → MTU 22:21
PROVIDERS: ADMIT Family Medicine; ATTEND Family Medicine
DX: A41.9 Sepsis, unspecified organism (principal); N17.0 Acute kidney failure with tubular necrosis; G92 Toxic encephalopathy; E87.2 Acidosis; J18.9 Pneumonia, unspecified organism; F15.10 Other stimulant abuse, uncomplicated; R31.0 Gross hematuria; E78.5 Hyperlipidemia, unspecified; R65.20 Severe sepsis without septic shock; F29 Unspecified psychosis not due to a substance or known physiological condition; Z59.0 Homelessness
CPT/HCPCS: 36415; 70450; 71045; 71260; 76700; 80048; 80053; 80305; 81001; 82140; 82150; 82550; 82948; 83036; 83605; 83690; 83735; 83880; 84100; 84436; 84443; 84484; 85025; 85610; 85730; 87040; 87081; 87086; 93005; 99285; G0480; G0482; J0456; J0696; J2270; J2405; J2543; J7030; J7060; Q0092; Q9967

== ENCOUNTER 2019-07-23 10:15 | Emergency (ER) | payer MEDICAID, OTHER ==
[~2019-07-23] VITALS: Ht 175.3 cm; Wt 85.7 kg
[~2019-07-23 10:15] MED LIST: RIS1 PO
--- NOTE | 2019-07-23 10:19 | NUR ---
PT TO ER BED 7
[2019-07-23 10:20] VITALS: BP 145/100
--- NOTE | 2019-07-23 10:40 | NUR ---
dr mejia at bedside.
--- NOTE | 2019-07-23 10:42 | NUR ---
C/O BACK PAIN / AND BURNING SENSATION UPON URINATION SINCE LAST NIGHT. DENIES INJURY. PT AWAKE ,ALERT,AFEBRILE AMBULATORY WITH STEADY GAIT .DENIES N/V . PMHX DENIES PREVIOUS INJURY OR ILLNESSES.
--- NOTE | 2019-07-23 11:00 | NUR ---
PT WENT RESTROOM.
[2019-07-23] MEDS: KETOROLAC 15 MG/ML VIAL IVP ONE (11:30)
[2019-07-23] MEDS: NACL 0.9% 1,000 ML IV SCH (11:31)
--- NOTE | 2019-07-23 11:37 | NUR ---
PT WENT TO CT SCAN AWHEEL CHAIR.
[2019-07-23 11:45] LABS: BASOPHILS % (AUTO) 0.3 % (0.0-2.0); EOSINOPHILS % (AUTO) 0.5 % (0.0-4.0); HEMATOCRIT 46.7 % (36-52); HEMOGLOBIN 15.6 g/dL (12.0-18.0); LYMPHOCYTES # (AUTO) 1.3 K/uL (2.0-11.5); MEAN CORPUSCULAR HEMOGLOBIN 29 pg (27-31); MEAN CORPUSCULAR HGB CONC 34 g/dL (33-37); MEAN CORPUSCULAR VOLUME 86.1 fL (80-94); MONOCYTES # (AUTO) 0.3 K/uL (0.8-1.0); NEUTROPHILS # (AUTO) 3.7 K/uL (1.8-7.7); NEUTROPHILS % (AUTO) 69.2 % (42.2-75.2); PLATELET COUNT (AUTO) 299 K/uL (140-450); RED BLOOD CELL COUNT(AUTO) 5.42 MIL/uL (4.20-6.10); RED CELL DISTRIBUTION WIDTH 13.5 % (11.6-13.7); WHITE BLOOD COUNT (AUTO) 5.3 K/uL (4.8-10.8)
--- NOTE | 2019-07-23 11:45 | NUR ---
PT BACK FROM CT SCAN VIA WHEEL CHAIR
[2019-07-23 11:51] LABS: APPEARANCE,URINE CLEAR (CLEAR); BILIRUBIN,URINE NEGATIVE (NEGATIVE); BLOOD, URINE NEGATIVE (NEGATIVE); COLOR,URINE YELLOW (YELLOW); LEUKOCYTE ESTERASE ,URINE NEGATIVE (NEGATIVE); NITRITE, URINE NEGATIVE (NEGATIVE); UGLUCOSE NEGATIVE (NEGATIVE)
[2019-07-23 12:00] LABS: ALBUMIN 4.4 g/dL (3.4-5.0); ANION GAP 11.4 (8-16); CARBON DIOXIDE 30.4 mmol/L (21-32); CREATININE 0.8 mg/dL (0.7-1.3); POTASSIUM 3.8 mmol/L (3.5-5.1); TOTAL BILIRUBIN 0.7 mg/dL (0.0-1.0)
[2019-07-23 12:51] VITALS: BP 145/100
--- NOTE | 2019-07-23 12:52 | NUR ---
Patient discharged with v/s stable. Written and verbal after care instructions given and explained back pain. Patient alert, oriented and verbalized understanding of instructions. Ambulatory with steady gait. All questions addressed prior to discharge. ID band removed. Patient advised to follow up with PMD. Rx of naprosyn given. Patient educated on indication of medication including possible reaction and side effects. Opportunity to ask questions provided and answered.
[2019-07-25 06:10] LABS: CHLAMYDIA TRACHOMATIS AMP DNA Negative (Negative)
--- NOTE | 2019-07-26 12:14 | NUR ---
Late entry. Confirmed with RN that 0.9 NS IV was completed at 1230
== END 2019-07-23 12:54 | disposition home or self-care (01) ==
LOC: MED 10:15
DX: M79.605 Pain in left leg (principal); J45.909 Unspecified asthma, uncomplicated; F17.200 Nicotine dependence, unspecified, uncomplicated; Z79.899 Other long term (current) drug therapy
CPT/HCPCS: 36415; 74176; 80053; 81003; 85025; 87086; 87491; 96374; 99284; J1885; J7030